=== PATIENT | female | born 1975 | race Two or more races ===

== ENCOUNTER → 2024-10-13 | Outpatient (CLI) | payer OTHER, SELFPAY ==
--- NOTE | 2024-10-13 11:45 | XR_ITS ---
Examination: Screening digital mammography, bilateral Computer aided detection 3-D breast Tomosynthesis, bilateral Date and time of exam: October 13, 2024 1149 hours Compared to mammograms dating to March 09, 2019 Indication: Screening Technique: Nonmagnified MLO, CC views of the breasts to been obtained, reconstructed from 3-D Tomosynthesis images. R2 computer aided detection program utilized for evaluation of suspicious masses and/or abnormal calcifications. 3-D Tomosynthesis images obtained. Findings: The breasts are heterogeneously dense, which may obscure small masses The implants appear intact No suspicious masses Impression: BI-RADS category II: Benign Findings. Recommend 1 year follow-up mammogram.
== END | disposition home or self-care (01) ==
LOC: CDIM 11:37
PROVIDERS: Referring Provider Nurse Practitioner Occupational Health; Visit Provider Nurse Practitioner Occupational Health
DX: Z12.31 Encounter for screening mammogram for malignant neoplasm of breast (principal); R92.323 Mammographic fibroglandular density, bilateral breasts
CPT/HCPCS: 77063; 77067

== ENCOUNTER → 2024-11-12 | Outpatient (CLI) | payer OTHER, SELFPAY ==
[2024-11-12 11:29] LABS: Basophils # (Auto) 0.1 Thou/mm3 (0.0-0.2); Basophils % (Auto) 1 % (0-2.5); Eosinophils # (Auto) 0.1 Thou/mm3 (0.0-0.5); Eosinophils % (Auto) 2 % (0-10); Hematocrit 45.6 % (36.0-46.0); Hemoglobin 15.6 g/dL (12.0-16.0); Immature Granulocytes % (Auto) 0 % (0-0); Immature Granulocytes Auto 0.02 Thou/mm3 (0.00-0.00); Lymphocytes # (Auto) 2.1 Thou/mm3 (1.0-4.8); Lymphocytes % (Auto) 26 % (10-50); Mean Corpuscular HGB Conc 34.2 g/dl (31.0-37.0); Mean Corpuscular Hemoglobin 30.8 pg (25.0-35.0); Mean Corpuscular Volume 90 fL (80-100); Monocytes # (Auto) 0.6 Thou/mm3 (0.0-0.8); Monocytes % (Auto) 8 % (0-12); Neutrophils # (Auto) 5.3 Thou/mm3 (1.8-7.7); Neutrophils % (Auto) 64 % (37-80); Nucleated Red Blood Cell % 0 /100 WBC (0); Platelet Count 388 Thou/mm3 (140-440); RDW Standard Deviation 40.1 fL (36.4-46.3); Red Blood Count 5.07 Miln/mm3 (4.00-5.20); White Blood Count 8.2 Thou/mm3 (3.6-11.0)
[2024-11-12 11:43] LABS: Glucose Estimated Average 91 mg/dL (80-131); Hemoglobin A1C 4.8 % Hgb (4.8-6.0)
[2024-11-12 11:54] LABS: Alanine Aminotransferase 16 U/L (10-49); Albumin, Serum 4.6 gm/dL (3.5-5.0); Anion Gap 5 (7-16); Aspartate Amino Transferase 18 U/L (0-34); BUN/Creatinine Ratio 13 Ratio (12-20); Bilirubin,Total 0.5 mg/dL (0.3-1.2); Blood Urea Nitrogen 13 mg/dL (9-23); Calcium 9.6 mg/dL (8.3-10.6); Calcium (Corrected) 9.6 mg/dL (8.5-10.1); Chloride 109 mMol/L (98-107); Glucose 101 mg/dL (74-106); Osmolality,Calculated 273 (275-295); Sodium 137 mMol/L (136-145); Total Protein 7.1 gm/dL (5.7-8.2); eGFR > 60 See Note
[2024-11-12 11:55] LABS: Albumin/Globulin Ratio 1.8 (1.2-2.2); Alkaline Phosphatase 84 U/L (46-116); Cardiac Risk Estimate 3.2 RATIO (3.7-5.6); Cholesterol 213 mg/dL (132-200); Free T3 2.9 pg/mL (2.3-4.2); Free T4 (Free Thyroxine) 1.23 ng/dL (0.89-1.76); Globulin 2.5 gm/dL (2.3-3.5); HDL Cholesterol 66 mg/dL (40-60); LDL Cholesterol,Calculated 128 mg/dL (0-130); Thyroid Stimulating Hormone 1.04 uIU/mL (0.55-4.78); Triglycerides 95 mg/dL (30-150)
[2024-11-16 06:27] LABS: T3,Total* 108 ng/dL (76-181)
== END | disposition home or self-care (01) ==
LOC: COPL 10:41
PROVIDERS: PCP Family Medicine; Referring Provider Family Medicine; Visit Provider Nurse Practitioner Occupational Health
DX: Z01.411 Encounter for gynecological examination (general) (routine) with abnormal findings (principal)
CPT/HCPCS: 36415; 80053; 80061; 83036; 84439; 84443; 84480; 84481; 85025

== ENCOUNTER → 2025-10-06 | Outpatient (CLI) | payer OTHER, SELFPAY ==
--- NOTE | 2025-10-06 13:15 | XR_ITS ---
Examination: Screening digital mammography, bilateral Computer aided detection 3-D breast Tomosynthesis, bilateral Date and time of exam: October 06, 2025, 1314 hours, compared to mammogram dated April 14, 2020 Indication: Screening Technique: Nonmagnified MLO, CC views of the breasts to been obtained, reconstructed from 3-D Tomosynthesis images. R2 computer aided detection program utilized for evaluation of suspicious masses and/or abnormal calcifications. 3-D Tomosynthesis images obtained. Findings: The breasts are heterogeneously dense, which may obscure small masses Implants intact Benign calcifications 10 mm nodular asymmetry inner upper left breast Impression: BI-RADS Category 0: Incomplete: Need additional imaging evaluation Recommend follow-up spot tomographic views of 10 mm nodular asymmetry inner upper left breast as well as left breast sonography to complete the work-up
== END | disposition home or self-care (01) ==
LOC: CDIM 13:04
PROVIDERS: PCP Family Medicine; Referring Provider Nurse Practitioner Occupational Health; Visit Provider Nurse Practitioner Occupational Health
DX: Z12.31 Encounter for screening mammogram for malignant neoplasm of breast (principal); R92.8 Other abnormal and inconclusive findings on diagnostic imaging of breast; N64.89 Other specified disorders of breast
CPT/HCPCS: 77063; 77067